=== PATIENT | female | born 1950 | race Caucasian/White ===

== ENCOUNTER 2019-03-14 11:40 | Outpatient (CLI) | payer MEDICARE, OTHER ==
--- NOTE | 2019-03-14 19:09 | RAD ---
RIGHT FOOT THREE VIEWS: 03/14/19 An erosion is seen in the medial part of the first metatarsal head that is nonarticular in location. There is soft tissue swelling around it. The possibility of gout is entertained. The remainder of the foot showed no acute findings. A tiny calcaneal spur was seen. IMPRESSION: Erosion of the first metatarsal head. Gout should be considered. POS: HOME
== END 2019-03-14 11:41 | disposition home or self-care (01) ==
LOC: BURRAD 11:40
PROVIDERS: ATTEND Nurse Practitioner Family
DX: M79.671 Pain in right foot (principal); M85.871 Other specified disorders of bone density and structure, right ankle and foot